=== PATIENT | female | born 1990 | race American Indian/Alaskan Native ===

== ENCOUNTER 2019-10-07 06:35 | Emergency (ER) | payer MEDICAID ==
[2019-10-07 08:20] LABS: Basophils % (Auto) 0.1 % (0.0-1.8); Eosinophils % (Auto) 0.1 % (0.0-4.3); Hematocrit 36.7 % (30.3-42.9); Hemoglobin 11.9 gm/dl (10.1-14.3); Lymphocytes # (Auto) 2.5 K/mm3 (1.2-5.4); Lymphocytes % (Auto) 15.1 % (13.4-35.0); Mean Corpuscular HGB Conc 32 % (30-34); Mean Corpuscular Volume 89 fl (79-97); Monocytes # (Auto) 0.8 K/mm3 (0.0-0.8); Monocytes % (Auto) 4.8 % (0.0-7.3); Platelet Count 366 K/mm3 (140-440); Red Blood Count 4.14 M/mm3 (3.65-5.03); Red Cell Distribution Width 17.1 % (13.2-15.2)
[2019-10-07 08:24] LABS: Alanine Aminotransferase 28 units/L (7-56); Albumin 4.3 g/dL (3.9-5); BUN/Creatinine Ratio 16; Blood Urea Nitrogen 8 mg/dL (7-17); Calcium 9.8 mg/dL (8.4-10.2); Hemolysis Index 0
[2019-10-07] MEDS ORDERED: SODIUM CHLORIDE 0.9% 1000 ML 1,000 ML IV ONE (08:55)
[2019-10-07] MEDS ORDERED: PANTOPRAZOLE 40 MG INJ IV ONE (08:55)
--- NOTE | 2019-10-07 09:00 | Emergency Department Report ---
ED Abdominal Pain HPI - General Chief Complaint: Abdominal Pain Stated Complaint: ABD/CHEST PAIN, SOB, Time Seen by Provider: 10/07/19 08:44 Source: patient Mode of arrival: Ambulatory Limitations: No Limitations - History of Present Illness Initial Comments: 28-year-old -[place] female patient presents with complaints of sudden onset of epigastric pain radiating through to her back times yesterday. She denies any chest pain or shortness of breath. She admits to history of PUD that was diagnosed without having in endoscopy performed 1 year ago. Patient states that she is not currently on antacids and has not been having any issues with heartburn. She also reports that she has been having a cough, sneezing, and runny nose for the past 3 days and was seen by her PCP yesterday and placed on azithromycin and given a steroid shot. Patient states she has not started taking the azithromycin yet. She denies any fever/chills/sweats/body aches, hematochezia/melena, vomiting, hemoptysis, or urinary symptoms. Past surgical history on abdomen includes a tubal ligation. MD Complaint: abdominal pain - Related Data Previous Rx's Medication Instructions Recorded Last Taken Type Dicyclomine [Bentyl] 20 mg PO QID PRN #40 tablet 10/07/19 Unknown Rx Pantoprazole [Protonix] 40 mg PO QDAY 15 Days #15 tablet 10/07/19 Unknown Rx Allergies Allergy/AdvReac Type Severity Reaction Status Date / Time No Known Allergies Allergy Unverified 10/07/19 06:47 ED Review of Systems ROS: Stated complaint: ABD/CHEST PAIN, SOB, Other details as noted in HPI Constitutional: denies: chills, diaphoresis, fever, malaise, weakness ENT: denies: throat pain Respiratory: cough. denies: shortness of breath Cardiovascular: denies: chest pain Endocrine: denies: excessive sweating Gastrointestinal: abdominal pain. denies: nausea, vomiting, diarrhea, cons tipation, hematemesis, melena, hematochezia Genitourinary: denies: urgency, dysuria, frequency, hematuria, discharge, dyspareunia Neurological: denies: headache, weakness Hematological/Lymphatic: denies: easy bleeding, swollen glands ED Past Medical Hx - Past Medical History Previous Medical History?: No - Surgical History Past Surgical History?: Yes Additional Surgical History: tubal, hemmorhoids - Social History Smoking Status: Current Every Day Smoker Substance Use Type: None - Medications Home Medications: Home Medications Medication Instructions Recorded Confirmed Last Taken Type Dicyclomine [Bentyl] 20 mg PO QID PRN #40 tablet 10/07/19 Unknown Rx Pantoprazole [Protonix] 40 mg PO QDAY 15 Days #15 tablet 10/07/19 Unknown Rx ED Physical Exam - General Limitations: No Limitations General appearance: alert, in no apparent distress - Head Head exam: Present: atraumatic, normocephalic - Eye Eye exam: Present: normal appearance. Absent: scleral icterus - ENT ENT exam: Present: mucous membranes moist - Neck Neck exam: Present: normal inspection - Respiratory Respiratory exam: Present: normal lung sounds bilaterally. Absent: respiratory distress - Cardiovascular Cardiovascular Exam: Present: regular rate, normal rhythm. Absent: systolic murmur, diastolic murmur, rubs, gallop - GI/Abdominal GI/Abdominal exam: Present: soft, tenderness (Epigastric), guarding, normal bowel sounds. Absent: distended, rebound, rigid - Extremities Exam Extremities exam: Present: normal inspection - Back Exam Back exam: Present: normal inspection - Neurological Exam Neurological exam: Present: alert, oriented X3 - Psychiatric Psychiatric exam: Present: normal affect, normal mood - Skin Skin exam: Present: warm, dry, intact, normal color. Absent: rash ED Course Vital Signs 10/07/19 10/07/19 06:41 10:55 Temperature 97.6 F Pulse Rate 86 97 H Respiratory 18 20 Rate Blood Pressure 140/91 Blood Pressure 140/86 [Right] O2 Sat by Pulse 100 100 Oximetry ED Medical Decision Making - Lab Data Result diagrams: 10/07/19 07:30 10/07/19 07:30 Lab Results 10/07/19 10/07/19 10/07/19 Range/Units 07:30 07:30 07:30 WBC 16.4 H (4.5-11.0) K/mm3 RBC 4.14 (3.65-5.03) M/mm3 Hgb 11.9 (10.1-14.3) gm/dl Hct 36.7 (30.3-42.9) % MCV 89 (79-97) fl MCH 29 (28-32) pg MCHC 32 (30-34) % RDW 17.1 H (13.2-15.2) % Plt Count 366 (140-440) K/mm3 Lymph % (Auto) 15.1 (13.4-35.0) % Placer % (Auto) 4.8 (0.0-7.3) % Eos % (Auto) 0.1 (0.0-4.3) % Baso % (Auto) 0.1 (0.0-1.8) % Lymph # 2.5 (1.2-5.4) K/mm3 Placer # 0.8 (0.0-0.8) K/mm3 Eos # 0.0 (0.0-0.4) K/mm3 Baso # 0.0 (0.0-0.1) K/mm3 Seg Neutrophils % 79.9 H (40.0-70.0) % Seg Neutrophils # 13.1 H (1.8-7.7) K/mm3 Sodium 133 L (137-145) mmol/L Potassium 4.2 (3.6-5.0) mmol/L Chloride 99.6 (98-107) mmol/L Carbon Dioxide 20 L (22-30) mmol/L Anion Gap 18 mmol/L BUN 8 (7-17) mg/dL Creatinine 0.5 L (0.7-1.2) mg/dL Estimated GFR > 60 ml/min BUN/Creatinine Ratio 16 % Glucose 115 H (65-100) mg/dL Calcium 9.8 (8.4-10.2) mg/dL Total Bilirubin < 0.20 (0.1-1.2) mg/dL AST 19 (5-40) units/L ALT 28 (7-56) units/L Alkaline Phosphatase 121 (35-129) units/L Total Protein 8.2 (6.3-8.2) g/dL Albumin 4.3 (3.9-5) g/dL Albumin/Globulin Ratio 1.1 % Lipase (13-60) units/L HCG, Qual Negative (Negative) Urine Color (Yellow) Urine Turbidity (Clear) Urine pH (5.0-7.0) Ur Specific [place] (1.003-1.030) Urine Protein (Negative) mg/dL Urine Glucose (UA) (Negative) mg/dL Urine Ketones (Negative) mg/dL Urine Blood (Negative) Urine Nitrite (Negative) Urine Bilirubin (Negative) Urine Urobilinogen (<2.0) mg/dL Ur Leukocyte Esterase (Negative) Urine WBC (Auto) (0.0-6.0) /HPF Urine RBC (Auto) (0.0-6.0) /HPF U Epithel Cells (Auto) (0-13.0) /HPF Urine Bacteria (Auto) (Negative) /HPF Urine Mucus /HPF 10/07/19 10/07/19 Range/Units 07:30 07:43 WBC (4.5-11.0) K/mm3 RBC (3.65-5.03) M/mm3 Hgb (10.1-14.3) gm/dl Hct (30.3-42.9) % MCV (79-97) fl MCH (28-32) pg MCHC (30-34) % RDW (13.2-15.2) % Plt Count (140-440) K/mm3 Lymph % (Auto) (13.4-35.0) % Placer % (Auto) (0.0-7.3) % Eos % (Auto) (0.0-4.3) % Baso % (Auto) (0.0-1.8) % Lymph # (1.2-5.4) K/mm3 Placer # (0.0-0.8) K/mm3 Eos # (0.0-0.4) K/mm3 Baso # (0.0-0.1) K/mm3 Seg Neutrophils % (40.0-70.0) % Seg Neutrophils # (1.8-7.7) K/mm3 Sodium (137-145) mmol/L Potassium (3.6-5.0) mmol/L Chloride (98-107) mmol/L Carbon Dioxide (22-30) mmol/L Anion Gap mmol/L BUN (7-17) mg/dL Creatinine (0.7-1.2) mg/dL Estimated GFR ml/min BUN/Creatinine Ratio % Glucose (65-100) mg/dL Calcium (8.4-10.2) mg/dL Total Bilirubin (0.1-1.2) mg/dL AST (5-40) units/L ALT (7-56) units/L Alkaline Phosphatase (35-129) units/L Total Protein (6.3-8.2) g/dL Albumin (3.9-5) g/dL Albumin/Globulin Ratio % Lipase 37 (13-60) units/L HCG, Qual (Negative) Urine Color Yellow (Yellow) Urine Turbidity Clear (Clear) Urine pH 7.0 (5.0-7.0) Ur Specific [place] 1.016 (1.003-1.030) Urine Protein <15 mg/dl (Negative) mg/dL Urine Glucose (UA) Neg (Negative) mg/dL Urine Ketones Neg (Negative) mg/dL Urine Blood Neg (Negative) Urine Nitrite Neg (Negative) Urine Bilirubin Neg (Negative) Urine Urobilinogen < 2.0 (<2.0) mg/dL Ur Leukocyte Esterase Neg (Negative) Urine WBC (Auto) 1.0 (0.0-6.0) /HPF Urine RBC (Auto) 2.0 (0.0-6.0) /HPF U Epithel Cells (Auto) 6.0 (0-13.0) /HPF Urine Bacteria (Auto) 4+ (Negative) /HPF Urine Mucus Few /HPF - Radiology Data Radiology results: report reviewed CT abdomen pelvis w con INDICATION: Epigastric pain for 3 days. TECHNIQUE: All CT scans at this location are performed using the following dose modulation technique: Automated exposure control. Helical slices were obtained through the abdomen and pelvis following the demonstration 100 cc of Omnipaque 300 COMPARISON: None available. FINDINGS: Abdomen: Lung bases are clear. Liver, spleen, pancreas, adrenal glands, and kidneys are not acute abnormality. The aorta is normal in diameter. 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 There is no adenopathy. There is no obstruction, inflammation, or free air. Pelvis: There is no obstruction or inflammation. There is a small amount of free fluid in the pelvis which is likely physiologic. There is a 2 cm cyst in the right ovary. There are a few phleboliths. The appendix is not seen. On review of bone windows, no acute osseous abnormalities are seen. IMPRESSION: 1. There is no obstruction, inflammation, or free air. There are no abnormal collections. There is a 2 cm cyst in the right ovary small amount of free fluid in the dependent portion of the pelvis. This is likely physiologic. ULTRASOUND ABDOMEN, LIMITED (RIGHT UPPER QUADRANT) INDICATION: epigastric/RUQ pain. COMPARISON: None available. FINDINGS: Pancreas: Visualized portion shows no significant abnormality. Liver: Normal. Gallbladder: Partially contracted. No stones identified. Bile ducts: Normal. Common Bile Duct measures 1.6 mm. Free fluid: None. Additional Findings: None. IMPRESSION: Partially contracted gallbladder. - Medical Decision Making Patient here with complaints of epigastric pain. Patient states history of PUD. CBC shows elevated white count of 16. CMP and lipase are normal. CT abdomen is normal. Patient did have a positive Francois sign on exam. Right upper quadrant ultrasound is negative for cholecystitis and shows contracted bladder. Patient given IV Protonix and states her symptoms have significantly improved. Suspect gastritis versus biliary colic. Patient's vitals are normal. She is well-appearing and stable for discharge home. Prescription for Protonix and Bentyl given. Recommend follow-up with GI specialist within 5 to 7 days. Discussed in detail strict return precautions with patient who verbalizes understanding. Critical care attestation.: If time is entered above; I have spent that time in minutes in the direct care of this critically ill patient, excluding procedure time. ED Disposition Clinical Impression: Upper abdominal pain Gastritis Qualifiers: Gastritis type: other gastritis Chronicity: acute Gastritis bleeding: without bleeding Qualified Code(s): K29.00 - Acute gastritis without bleeding Disposition: DC-01 TO HOME OR SELFCARE Is pt being admited?: No Condition: Stable Instructions: Gastritis (ED), Diet for Ulcers and Gastritis (ED), Biliary Colic (ED) Prescriptions: Dicyclomine [Bentyl] 20 mg PO QID PRN #40 tablet PRN Reason: abdominal cramping Pantoprazole [Protonix] 40 mg PO QDAY 15 Days #15 tablet Referrals: KATHY JONES MD [Primary Care Provider] - 3-5 Days [facility] [Provider Group] - 3-5 Days
[2019-10-07 09:14] LABS: Bacteria,Urine 4+ /HPF (Negative); Bilirubin,Urine NEG (Negative); Blood,Urine NEG (Negative); Color,Urine Yellow (Yellow); Mucus,Urine FEW /HPF; Protein,Urine <15 mg/dL mg/dL (Negative); Urobilinogen,Urine < 2.0 mg/dL (<2.0)
--- NOTE | 2019-10-07 10:25 | Cat Scan Report ---
CT abdomen pelvis w con INDICATION: Epigastric pain for 3 days. TECHNIQUE: All CT scans at this location are performed using the following dose modulation technique: Automated exposure control. Helical slices were obtained through the abdomen and pelvis following the demonstra tion 100 cc of Omnipaque 300 COMPARISON: None available. FINDINGS: Abdomen: Lung bases are clear. Liver, spleen, pancreas, adrenal glands, and kidneys are not acute abn ormality. The aorta is normal in diameter. 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 There is no adenopathy. There is no obstruction, inflammation, or free air. Pelvis: There is no obstruction or inflammation. There is a small amount of free fluid in the pelvis which is likely physiologic. There is a 2 cm cyst in the right ovary. There are a few phleboliths. Th e appendix is not seen. On review of bone windows, no acute osseous abnormalities are seen. IMPRESSION: 1. There is no obstruction, inflammation, or free air. There are no abnormal collections. There is a 2 cm cyst in the right ovary small amount of free fluid in the dependent portion of the pe lvis. This is likely physiologic. Signer Name: Juan Rivers MD Signed: 10/07/2019 10:20 AM Workstation Name: [id number]
[2019-10-07 10:56] VITALS: BP 140/86
[2019-10-07] MEDS ORDERED: ONDANSETRON 4 MG/2 ML INJ IV ONE (11:05)
[2019-10-07] MEDS ORDERED: MORPHINE 4 MG/1 ML INJ IV ONE (11:05)
--- NOTE | 2019-10-07 13:55 | Ultrasound Report ---
ULTRASOUND ABDOMEN, LIMITED (RIGHT UPPER QUADRANT) INDICATION: epigastric/RUQ pain. COMPARISON: None available. FINDINGS: Pancreas: Visualized portion shows no significant abnormality. Liver: Normal. Gallbladder: Partially contracted. No stones identified. Bile ducts: Normal. Common Bile Duct measures 1.6 mm. Free fluid: None. Additional Findings: None. IMPRESSION: Partially contracted gallbladder. Signer Name: Jr Che MD Signed: 10/07/2019 1:51 PM Workstation Name: [id number]
== END 2019-10-07 14:42 | disposition home or self-care (01) ==
LOC: ED 06:35
DX: K29.70 Gastritis, unspecified, without bleeding (principal); K64.9 Unspecified hemorrhoids; F17.200 Nicotine dependence, unspecified, uncomplicated; Z79.899 Other long term (current) drug therapy; Z87.11 Personal history of peptic ulcer disease
CPT/HCPCS: 36415; 74177; 76705; 80053; 81001; 83690; 84703; 85025; 96361; 96374; 99284; C9113; J7030; Q9967; J2270; J2405

== ENCOUNTER 2020-12-09 11:06 | Emergency (ER) | payer MEDICAID ==
[2020-12-09 11:50] VITALS: BP 159/103
--- NOTE | 2020-12-09 11:52 | Emergency Department Report ---
Blank Doc - Documentation Documentation: 29-year-old female that presents with right lower abdominal pain with nausea. Exam: Right lower quad tenderness. 1- This initial assessment/diagnostic orders/clinical plan/ treatment(s) is/are subject to change based on pt's health status, clinical progression and re-assessment by fellow clinical providers in the ED. Further treatment and workup at subsequent clinical provers discretion. Patient/guardians urged not to elope from ED as their condition may be serious if not clinically assessed and managed. 2-labs 3-UA
[2020-12-09 13:39] LABS: Bilirubin,Urine NEG (Negative); Blood,Urine NEG (Negative); Color,Urine Yellow (Yellow); Mucus,Urine FEW /HPF; Protein,Urine <15 mg/dL mg/dL (Negative); Urobilinogen,Urine < 2.0 mg/dL (<2.0)
[2020-12-09 14:11] LABS: Basophils # (Auto) 0.1 K/mm3 (0.0-0.1); Basophils % (Auto) 0.8 % (0.0-1.8); Eosinophils # (Auto) 0.4 K/mm3 (0.0-0.4); Eosinophils % (Auto) 4.5 % (0.0-4.3); Hematocrit 35.7 % (30.3-42.9); Hemoglobin 11.4 gm/dl (10.1-14.3); Lymphocytes # (Auto) 3.8 K/mm3 (1.2-5.4); Lymphocytes % (Auto) 40.3 % (13.4-35.0); Mean Corpuscular HGB Conc 32 % (30-34); Mean Corpuscular Volume 86 fl (79-97); Monocytes # (Auto) 0.7 K/mm3 (0.0-0.8); Monocytes % (Auto) 6.9 % (0.0-7.3); Platelet Count 344 K/mm3 (140-440); Red Blood Count 4.14 M/mm3 (3.65-5.03)
[2020-12-09 14:21] LABS: Alanine Aminotransferase 29 units/L (7-56); Albumin 4.2 g/dL (3.9-5); Blood Urea Nitrogen 6 mg/dL (7-17); Hemolysis Index 7
[2020-12-09 14:23] LABS: BUN/Creatinine Ratio 12
== END 2020-12-09 19:00 ==
LOC: ED 11:06
DX: R10.9 Unspecified abdominal pain (principal); Z53.21 Procedure and treatment not carried out due to patient leaving prior to being seen by health care provider
CPT/HCPCS: 36415; 80053; 81001; 83690; 84703; 85025

== ENCOUNTER 2021-06-06 19:08 | Emergency (ER) | payer MEDICAID ==
--- NOTE | 2021-06-06 20:20 | Emergency Department Report ---
ED Female HPI - General Chief complaint: Vaginal Bleeding Stated complaint: POSS MISCARRYING, LOWER ABD PAIN AND SIDE PAIN Time Seen by Provider: 06/06/21 20:04 Source: patient Mode of arrival: Ambulatory Limitations: No Limitations - History of Present Illness Initial comments: Patient is G3, states positive test at home. Started to have vaginal bleeding today is used 3 pads. 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 Last menstrual cycle 1 month ago. Patient states concern for miscarriage. Abdominal cramping at this time rated at 5/10. There is been no fevers no chills no nausea no vomiting. Patient has not seen OBGYN. Complaint: vaginal bleeding - Related Data Previous Rx's Medication Instructions Recorded Last Taken Type Dicyclomine [Bentyl] 20 mg PO QID PRN #40 tablet 10/07/19 Unknown Rx Pantoprazole [Protonix] 40 mg PO QDAY 15 Days #15 tablet 10/07/19 Unknown Rx Ibuprofen [Motrin 800 MG tab] 800 mg PO Q8HR PRN #30 tablet 06/07/21 Unknown Rx cephALEXin [Keflex] 500 mg PO BID 7 Days #14 cap 06/07/21 Unknown Rx Allergies Allergy/AdvReac Type Severity Reaction Status Date / Time No Known Allergies Allergy Unverified 10/07/19 06:47 ED Review of Systems ROS: Stated complaint: POSS MISCARRYING, LOWER ABD PAIN AND SIDE PAIN Other details as noted in HPI Constitutional: denies: chills, fever Eyes: denies: eye pain, eye discharge, vision change ENT: denies: ear pain, throat pain Respiratory: denies: cough, shortness of breath, wheezing Cardiovascular: denies: chest pain, palpitations Endocrine: no symptoms reported Gastrointestinal: abdominal pain, nausea. denies: vomiting Genitourinary: denies: urgency, dysuria, discharge Musculoskeletal: denies: back pain, joint swelling, arthralgia Skin: denies: rash, lesions Neurological: denies: headache, weakness, paresthesias, vertigo Psychiatric: denies: anxiety, depression Hematological/Lymphatic: denies: easy bleeding, easy bruising ED Past Medical Hx - Past Medical History Previous Medical History?: Yes Hx Hypertension: Yes - Surgical History Past Surgical History?: Yes Additional Surgical History: tubal, hemmorhoids; tubal ligation reversal Nov 19, 2020 - Social History Smoking Status: Current Every Day Smoker Substance Use Type: None - Medications Home Medications: Home Medications Medication Instructions Recorded Confirmed Last Taken Type Dicyclomine [Bentyl] 20 mg PO QID PRN #40 tablet 10/07/19 Unknown Rx Pantoprazole [Protonix] 40 mg PO QDAY 15 Days #15 tablet 10/07/19 Unknown Rx Ibuprofen [Motrin 800 MG tab] 800 mg PO Q8HR PRN #30 tablet 06/07/21 Unknown Rx cephALEXin [Keflex] 500 mg PO BID 7 Days #14 cap 06/07/21 Unknown Rx ED Physical Exam - General Limitations: No Limitations General appearance: alert, in no apparent distress - Head Head exam: Present: atraumatic, normocephalic - Eye Eye exam: Present: normal appearance, EOMI Pupils: Present: normal accommodation - ENT ENT exam: Present: mucous membranes moist - Neck Neck exam: Present: normal inspection, full ROM. Absent: tenderness - Respiratory Respiratory exam: Present: normal lung sounds bilaterally. Absent: wheezes, stridor - Cardiovascular Cardiovascular Exam: Present: regular rate, normal rhythm, normal heart sounds. Absent: systolic murmur, diastolic murmur, rubs, gallop - GI/Abdominal GI/Abdominal exam: Present: soft, normal bowel sounds. Absent: distended, tenderness, guarding, bruit, hernia - Rectal Rectal exam: Present: deferred - External exam: Present: other (exam deferred per patient ) - Extremities Exam Extremities exam: Present: normal inspection, full ROM. Absent: tenderness - Back Exam Back exam: Present: normal inspection, full ROM. Absent: CVA tenderness (R), CVA tenderness (L) - Neurological Exam Neurological exam: Present: alert, oriented X3, CN II-XII intact, normal gait - Psychiatric Psychiatric exam: Present: normal affect, normal mood - Skin Skin exam: Present: warm, dry, intact, normal color. Absent: rash ED Course Vital Signs 06/06/21 19:57 Temperature 98.0 F Pulse Rate 95 H Respiratory 18 Rate Blood Pressure 199/105 O2 Sat by Pulse 100 Oximetry ED Medical Decision Making - Lab Data Result diagrams: 06/06/21 20:51 Labs 06/06/21 06/06/21 06/06/21 20:47 20:51 23:38 WBC 10.7 RBC 3.75 Hgb 11.2 Hct 33.0 MCV 88 MCH 30 MCHC 34 RDW 16.6 H Plt Count 336 Lymph % (Auto) 40.9 H [place] % (Auto) 9.3 H Eos % (Auto) 4.4 H Baso % (Auto) 1.5 Lymph # (Auto) 4.4 [place] # (Auto) 1.0 H Eos # (Auto) 0.5 H Baso # (Auto) 0.2 H Seg Neutrophils % 43.9 Seg Neutrophils # 4.7 HCG, Quant < 2 Urine Color Urine Turbidity Urine pH Ur Specific [place] Urine Protein Urine Glucose (UA) Urine Ketones Urine Blood Urine Nitrite Urine Bilirubin Urine Urobilinogen Ur Leukocyte Esterase Urine WBC (Auto) Urine RBC (Auto) Urine WBC Clumps Urine Mucus Urine Yeast (Budding) Urine HCG, Qual Blood Type O POSITIVE 06/06/21 Unknown WBC RBC Hgb Hct MCV MCH MCHC RDW Plt Count Lymph % (Auto) [place] % (Auto) Eos % (Auto) Baso % (Auto) Lymph # (Auto) [place] # (Auto) Eos # (Auto) Baso # (Auto) Seg Neutrophils % Seg Neutrophils # HCG, Quant Urine Color Yellow Urine Turbidity Turbid Urine pH 8.0 H Ur Specific [place] 1.020 Urine Protein 30 mg/dl Urine Glucose (UA) Neg Urine Ketones Neg Urine Blood Lg Urine Nitrite Neg Urine Bilirubin Neg Urine Urobilinogen < 2.0 Ur Leukocyte Esterase Neg Urine WBC (Auto) 92.0 H Urine RBC (Auto) > 182.0 Urine WBC Clumps 3+ Urine Mucus Few Urine Yeast (Budding) 3+ Urine HCG, Qual Negative Blood Type - Medical Decision Making hCG is negative, UA positive for blood leukocytes WBCs, there is no dysuria frequency or urgency. UTI with KUB. Plan DC to home with prescriptions. Follow-up with [facility] in 2 to 3 days. Return to emergency if symptoms worsen. Patient verbalized agreement and understanding of discharge plan. Critical care attestation.: If time is entered above; I have spent that time in minutes in the direct care of this critically ill patient, excluding procedure time. ED Disposition Clinical Impression: Abnormal uterine bleeding (AUB) UTI (urinary tract infection) Qualifiers: Urinary tract infection type: acute cystitis Hematuria presence: without hematuria Qualified Code(s): N30.00 - Acute cystitis without hematuria Disposition: HOME / SELF CARE / HOMELESS Is pt being admited?: No Does the pt Need Aspirin: No Condition: Stable Additional Instructions: Take medications as prescribed, follow-up with [facility] doctor in 2 to 3 days. Return to emergency should symptoms worsen. Prescriptions: cephALEXin [Keflex] 500 mg PO BID 7 Days #14 cap Ibuprofen [Motrin 800 MG tab] 800 mg PO Q8HR PRN #30 tablet PRN Reason: pain Referrals: PRIMARY CAREMD [Primary Care Provider] - 3-5 Days VELVET BRITO MD [Staff Physician] - 3-5 Days Forms: Work/School Release Form(ED) Time of Disposition: 01:14
[2021-06-06 21:02] LABS: Basophils # (Auto) 0.2 K/mm3 (0.0-0.1); Basophils % (Auto) 1.5 % (0.0-1.8); Eosinophils # (Auto) 0.5 K/mm3 (0.0-0.4); Eosinophils % (Auto) 4.4 % (0.0-4.3); Hemoglobin 11.2 gm/dl (10.1-14.3); Lymphocytes # (Auto) 4.4 K/mm3 (1.2-5.4); Lymphocytes % (Auto) 40.9 % (13.4-35.0); Mean Corpuscular HGB Conc 34 % (30-34); Mean Corpuscular Volume 88 fl (79-97); Monocytes % (Auto) 9.3 % (0.0-7.3); Platelet Count 336 K/mm3 (140-440); Red Blood Count 3.75 M/mm3 (3.65-5.03); Red Cell Distribution Width 16.6 % (13.2-15.2)
[2021-06-06 21:25] LABS: Bilirubin,Urine NEG (Negative); Blood,Urine LG (Negative); Color,Urine Yellow (Yellow); Mucus,Urine FEW /HPF; Urobilinogen,Urine < 2.0 mg/dL (<2.0)
[2021-06-06 21:32] LABS: HCG Qualitative,Urine Negative (Negative); RBC,Urine > 182.0 /HPF (0.0-6.0)
[2021-06-06] MEDS ORDERED: cefTRIAXone/NS 1 GM/50 ML 1 GM/50 ML BAG IV ONE (21:58)
[2021-06-07 01:57] VITALS: BP 152/90
== END 2021-06-07 10:56 | disposition home or self-care (01) ==
LOC: ED 19:08
DX: N93.9 Abnormal uterine and vaginal bleeding, unspecified (principal); N30.00 Acute cystitis without hematuria; I10 Essential (primary) hypertension; F17.200 Nicotine dependence, unspecified, uncomplicated
CPT/HCPCS: 36415; 81001; 81025; 84702; 85025; 86900; 86901; 87086; 96365; 99283; J0696